=== PATIENT | female | born 1940 | race African-American/Black ===

== ENCOUNTER 2021-02-19 14:35 | Emergency (ER) | payer BC ==
[~2021-02-19] VITALS: Ht 167.6 cm; Wt 88.0 kg
[2021-02-19 14:41] VITALS: BP 155/77
[2021-02-19 17:20] LABS: BASOPHILS % 1.3 % (0.0-2.0); HEMATOCRIT. 39.2 % (36.0-48.0); HEMOGLOBIN. 13.1 g/dL (12.0-16.0); LYMPHOCYTES % 25.3 % (20.0-50.0); MEAN CORPUSCULAR HEMOGLOBIN 31.2 pg (28.0-32.0); MEAN CORPUSCULAR VOLUME 93.4 fL (81.0-99.0); MEAN PLATELET VOLUME 8.8 fl (7.4-10.4); NEUTROPHILS % 64.4 % (40.0-76.0); PLATELET 278 x1000/uL (130-400); RED CELL DISTRIBUTION WIDTH 13.2 % (11.6-14.6)
== END 2021-02-19 18:38 | disposition home or self-care (01) ==
LOC: ER 14:35
DX: R04.0 Epistaxis (principal); I10 Essential (primary) hypertension; E03.9 Hypothyroidism, unspecified; E05.90 Thyrotoxicosis, unspecified without thyrotoxic crisis or storm; Z85.3 Personal history of malignant neoplasm of breast; Z88.0 Allergy status to penicillin; Z88.6 Allergy status to analgesic agent
CPT/HCPCS: 36415; 85025; 99283

== ENCOUNTER 2021-02-20 01:18 | Emergency (ER) | payer BC ==
[~2021-02-20] VITALS: Ht 167.6 cm; Wt 89.0 kg
[2021-02-20 01:24] VITALS: BP 134/71
[2021-02-20] MEDS ORDERED: OXYMETAZOLINE HCL NASAL SPRAY 15ML BOTHNSTRLS SCH (02:21)
== END 2021-02-20 04:25 | disposition home or self-care (01) ==
LOC: ER 01:18
DX: I10 Essential (primary) hypertension (principal); R04.0 Epistaxis; E78.00 Pure hypercholesterolemia, unspecified; Z88.0 Allergy status to penicillin; Z98.890 Other specified postprocedural states; Z88.6 Allergy status to analgesic agent; Z88.5 Allergy status to narcotic agent; Z86.39 Personal history of other endocrine, nutritional and metabolic disease
CPT/HCPCS: 99283

== ENCOUNTER 2021-02-21 16:10 | Emergency (ER) | payer BC ==
[~2021-02-21] VITALS: Ht 167.6 cm; Wt 89.0 kg
[2021-02-21 21:23] LABS: BASOPHILS % 1.2 % (0.0-2.0); EOSINOPHILS % 1.3 % (0.0-5.0); HEMATOCRIT. 35.1 % (36.0-48.0); HEMOGLOBIN. 11.7 g/dL (12.0-16.0); MEAN CORPUSCULAR HEMOGLOBIN 30.8 pg (28.0-32.0); MEAN CORPUSCULAR VOLUME 92.6 fL (81.0-99.0); MONOCYTES % 7.5 % (2.0-8.0); PLATELET 259 x1000/uL (130-400); RED BLOOD CELL COUNT 3.79 mill/uL (4.2-5.4); RED CELL DISTRIBUTION WIDTH 12.8 % (11.6-14.6)
[2021-02-21 21:33] LABS: PARTIAL THROMBOPLASTIN TIME 32.1 sec (23.4-31.0)
[2021-02-21 21:34] LABS: CHLORIDE 102 mEq/L (98-107)
[2021-02-21 22:25] VITALS: BP 133/59
== END 2021-02-21 22:29 | disposition home or self-care (01) ==
LOC: ER 16:10
DX: R04.0 Epistaxis (principal); E78.00 Pure hypercholesterolemia, unspecified; I10 Essential (primary) hypertension; E03.9 Hypothyroidism, unspecified; Z88.0 Allergy status to penicillin; Z88.5 Allergy status to narcotic agent; Z88.6 Allergy status to analgesic agent
CPT/HCPCS: 36415; 80053; 85025; 86850; 86900; 99283